=== PATIENT | male | born 1965 | race Caucasian/White ===

== ENCOUNTER 2017-04-14 08:14 | Observation (INO) | payer OTHER ==
[~2017-04-14] VITALS: Ht 177.8 cm; Wt 81.5 kg
[2017-04-14] MEDS ORDERED: PRAS1CAP PO (08:31)
[2017-04-14 09:01] LABS: BASO % 0.2 %; BASO ABS # 0.01 K/uL (0-0.2); COMPLETE YES; EOS % 3.6 %; HEMATOCRIT 44.1 % (42-52); LYMPH % 22.9 %; LYMPH ABS # 1.33 K/uL (1.2-3.4); MEAN CELL VOLUME 86.5 fL (80-100); MEAN CORPUSCULAR HEMOGLOBIN 28.8 pg (25-34); MEAN CORPUSCULAR HGB CONC 33.3 g/dl (32-36); MONO % 7.9 %; NEUT % 65.4 %; PLATELET COUNT 177 K/uL (130-400); WHITE BLOOD COUNT 5.81 K/uL (4.8-10.8)
--- NOTE | 2017-04-14 09:15 | DIAGNOSTIC IMAGING REPORT ---
CHEST ONE VIEW PORTABLE CLINICAL HISTORY: Atypical chest pain COMPARISON STUDY: 5-16 FINDINGS: The cardiac and mediastinal contours are normal. There is no evidence of focal pulmonary consolidation. There is no evidence of failure. No pleural effusions are visualized.[ IMPRESSION: No active disease in the chest. Electronically signed by: Herman Negron M.D. 04/14/2017 9:14 AM Dictated Date/Time: 04/14/2017 9:14 AM
[2017-04-14 09:22] LABS: BLOOD UREA NITROGEN 18 mg/dl (7-18); BUN/CREATININE RATIO 14.6 (10-20); CALCIUM 9.3 mg/dl (8.5-10.1); CARBON DIOXIDE 27 mmol/L (21-32); CHLORIDE 107 mmol/L (98-107); GLUCOSE 96 mg/dl (70-99); POTASSIUM 4.5 mmol/L (3.5-5.1); SODIUM 140 mmol/L (136-145)
[2017-04-14] MEDS ORDERED: ASPIRIN 81 MG CHEW PO STA (09:30)
[2017-04-14] MEDS ORDERED: SODIUM CHLORIDE 0.9% 1000ML 1,000 ML IV STA (10:46)
[2017-04-14] MEDS ORDERED: MAGNESIUM HYDROXIDE SUSP 30 ML UDC PO PRN (11:30)
[2017-04-14] MEDS ORDERED: ZOLPIDEM TARTRATE 5 MG TAB PO PRN (11:30)
[2017-04-14] MEDS ORDERED: ONDANSETRON INJ 2 MG/ML 2 ML VIAL IV PRN (11:30)
[2017-04-14] MEDS ORDERED: ALUMINUM/MAGNESIUM/SIMETH (MAALOX MAX) 30 ML UDC PO PRN (11:30)
[2017-04-14] MEDS ORDERED: ACETAMINOPHEN 325 MG TAB PO PRN (11:30)
--- NOTE | 2017-04-14 11:35 | History and Physical ---
History & Physical Date & Time of Service: Apr 14, 2017 at 11:02 Chief Complaint: Chest Pain Primary Care Physician: No Doctor, Assigned History of Present Illness Source: patient, spouse 52yo male with no significant PMH who presents with multiple CV symptoms since last . He states that about that time he developed "fluttering" of the heart. Symptoms are transient, lasting about 5-10 minutes. He feels skipped beats. He feels a little short of breath with the episodes and has mild chest tightness. Symptoms occur at rest and sometimes with activity. He took a dose of ativan (it was his 's) when he felt these symptoms a few days ago and this helped his symptoms. Episodes have occurred about 3-5 x's each day. No fevers or chills. Several times over the last few days, during the spells noted above, his would check his blood pressure and it would be 80s over 60s. When the pressures were low like this he felt like he could pass out. Last week they were traveling in [place] (for 's doctor appointment) and he felt like he was going to pass out. He feels dehydrated today. Past Medical/Surgical History PMH: 1. treated for hypothyroidism about 1 year ago - now off medications 2. heart murmur as a child 3. chronic sinusitis 4. chronic retinal problem, right eye, with resulting visual disturbance PSH: 1. tonsillectomy 2. heart cath as a child - reason? - was normal, however 3. 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 ) Multi-Drug Resistant Organisms History of MDRO: No Allergies Coded Allergies: Penicillins (Verified Allergy, Mild, WEAK IN LEGS, 04/14/17) Home Medications Scheduled Prasterone (Dhea) (Dhea), 12.5 MG PO DAILY Review of Systems Constitutional: + fatigue, No fever, No chills, No sweats, No weight loss Eyes: + worsening of vision (right eye retinal issue - chronic) ENT: No nasal symptoms, No sore throat Respiratory: + cough (typically AM) Cardiovascular: + chest pain (symptoms better standing), + palpitations, No orthopnea, No PND, No edema Abdomen: No pain, No nausea, No vomiting, No diarrhea, No constipation, No GI bleeding Musculoskeletal: No joint pain, No muscle pain, No swelling, No calf pain Genitourinary - Male: + urinary frequency, No dysuria Neurologic: + numbness/tingling (left arm -last night only) Psychiatric: No anxiety, No insomnia Endocrine: + fatigue Hematologic / Lymphatic: No abnormal bleeding/bruising, No swollen lymph nodes , No night sweats Integumentary: No rash Physical Exam Vital Signs Date Time Temp Pulse Resp B/P (MAP) Pulse Ox O2 Delivery O2 Flow Rate FiO2 04/14/17 10:28 46 16 112/97 97 Room Air 04/14/17 09:44 60 16 103/69 97 04/14/17 08:48 56 04/14/17 08:32 54 101/62 56 105/67 57 106/69 04/14/17 08:23 98 Room Air 04/14/17 08:17 37.7 54 16 106/67 98 Room Air General Appearance: WD/WN, no apparent distress, + pertinent finding (looks dehydrated; mildly anxious) Head: normocephalic, atraumatic Eyes: PERRL, EOMI ENT: hearing grossly normal, TMs normal, pharynx normal, + nasal congestion Neck: supple, no adenopathy, thyroid normal, no JVD Respiratory/Chest: chest non-tender, lungs clear, normal breath sounds, no respiratory distress, no accessory muscle use Cardiovascular: no gallop, no murmur, normal peripheral pulses, + bradycardia Abdomen/GI: normal bowel sounds, non tender, soft, no organomegaly Back: normal inspection Extremities/Musculoskelatal: normal inspection, no calf tenderness, normal capillary refill, no pedal edema, normal range of motion Neurologic/Psych: no motor/sensory deficits, alert, normal mood/affect, normal reflexes, oriented x 3 Skin: no rash Lymphatic: no adenopathy (cervical ) Diagnostics Laboratory Results Results Past 24 Hours Test 04/14/17 08:45 04/14/17 10:52 Range/Units White Blood Count 5.81 4.8-10.8 K/uL Red Blood Count 5.10 4.7-6.1 M/uL Hemoglobin 14.7 14.0-18.0 g/dL Hematocrit 44.1 42-52 % Mean Corpuscular Volume 86.5 80-100 fL Mean Corpuscular Hemoglobin 28.8 25-34 pg Mean Corpuscular Hemoglobin Concent 33.3 32-36 g/dl Platelet Count 177 130-400 K/uL Mean Platelet Volume 11.0 7.4-10.4 fL Neutrophils (%) (Auto) 65.4 % Lymphocytes (%) (Auto) 22.9 % Monocytes (%) (Auto) 7.9 % Eosinophils (%) (Auto) 3.6 % Basophils (%) (Auto) 0.2 % Neutrophils # (Auto) 3.80 1.4-6.5 K/uL Lymphocytes # (Auto) 1.33 1.2-3.4 K/uL Monocytes # (Auto) 0.46 0.11-0.59 K/uL Eosinophils # (Auto) 0.21 0-0.5 K/uL Basophils # (Auto) 0.01 0-0.2 K/uL RDW Standard Deviation 41.1 36.4-46.3 fL RDW Coefficient of Variation 12.8 11.5-14.5 % Immature Granulocyte % (Auto) 0.0 % Immature Granulocyte # (Auto) 0.00 0.00-0.02 K/uL D-Dimer < 190 0-500 ug/L FEU Sodium Level 140 136-145 mmol/L Potassium Level 4.5 3.5-5.1 mmol/L Chloride Level 107 98-107 mmol/L Carbon Dioxide Level 27 21-32 mmol/L Anion Gap 6.0 3-11 mmol/L Blood Urea Nitrogen 18 7-18 mg/dl Creatinine 1.20 0.60-1.40 mg/dl Est Creatinine Clear Calc Drug Dose 73.5 ml/min Estimated GFR () 79.5 Estimated GFR (Non- 68.6 BUN/Creatinine Ratio 14.6 10-20 Random Glucose 96 70-99 mg/dl Calcium Level 9.3 8.5-10.1 mg/dl Total Creatine Kinase 290 39-308 U/L Creatine Kinase MB 2.8 0.5-3.6 ng/ml Creatine Kinase MB Ratio 1.0 0-3.0 Troponin I < 0.015 0-0.045 ng/ml Diagnostic Radiology cxr - normal, infiltrates EKG EKG - sinus bradycardia, PAC noted, no ST changes; normal intervals, no LVH NS ST changes III, AVF minimal J point elevation I and AVL Impression Assessment and Plan 52yo male with history of hypothyroidism but no longer on replacement medication presenting with palpitations and chest tightness episodes lasting 10- 15 minutes several times a day for the past few days. He has felt weak and tired during these spells. His astutely checked his blood pressure over the weekend (and today) during the episodes and found him to be in the 80s systolic. He has had near- syncope as well. 1. chest tightness, palpitations - he has had sinus bradycardia with PACs on EKG and on telemetry while in the ER. Will place him on telemetry, check an echo, await his TSH, and perform serial cardiac enzymes. Depending on these results a decision can be made about further cardiac work-up (stress test, outpatient event monitor, etc). Although he recently traveled to [place] I think his risk of PE is low. 2. dehydration - the patient clinically appears dehydrated and his symptoms at home suggest that as well. Give a NS bolus now, then hydrate with NS at 150cc/hr. He has no obvious reason for the low BP and orthostasis although he has a low- grade fever in the ER today. In addition to the echo will check a random cortisol level. 3. low-grade fever - the [place] and spends a considerable time outdoors. Will check a lyme's screen. No pneumonia on cxr. Obtain blood cx's and follow. Check sed rate, crp. 4. FEN - NS hydration as above, regular diet, repeat bmp in am. 5. DVT proph - lovenox once daily. 6. chronic cough - suspect sinus/allergy related. Consider nasal steroid and antihistamine. He has a prior h/o chronic sinusitis. 7. sinus bradycardia - await TSH. This may be functional as he is quite healthy. Observe on telemetry for pauses, intermittent block, etc. 8. near-syncope - likely due to dehydration/orthostasis. Hydrate. Advanced Directives Existing Advance Directive: Yes Existing Living Will: Yes Existing Power of Databases Software Consultant: Yes Resuscitation Status FULL RESUSCITATION VTE Prophylaxis VTE Risk Assessment Done? Y/N: Yes Risk Level: Low Given or contraindicated: Enoxaparin (Lovenox)SQ Social Service Consult None Apply Note total time about 60 minutes patient to be placed on observation status Additional Copies To Jose Guadalupe Hensley M.D.
[2017-04-14 11:58] VITALS: O2SAT 98; Ht 177.8 cm; Wt 81.5 kg
[2017-04-14] MEDS ORDERED: IV FLUIDS COMPLETED PRN (13:15)
[2017-04-14 13:48] VITALS: BP 102/61; PULSE 48; TEMP 36.8; O2SAT 98
--- NOTE | 2017-04-14 14:45 | EMERGENCY ROOM VISIT NOTE ---
History Report prepared by Suki: Saulo Licea Under the Supervision of: Dr. Jose Wilson D.O. First contact with patient: 08:44 Chief Complaint: CHEST PAIN Stated Complaint: CHEST PAIN Nursing Triage Summary: Chest pain, center of chest. Pt states has been going on for approx a week, more frequent and getting worse as it goes. Took two baby aspirin this a.m. No radiation of the pain. Hx of heart murmur. Pt states "feels like fluttering and irregular" History of Present Illness The patient is a 52 year old male who presents to the Emergency Room with complaints of intermittent "fluttering" and "tightness" in his chest that began on of last week, 4 days ago. The patient states that his symptoms have been intermittent for the past four days, but are increasing in frequency and severity. The last episode occurred while en route to the hospital, just prior to arrival. He also complains of tingling in the left arm last night, pain in the right shoulder, and intermittent shortness of breath. The patient's notes that he has also complained of headaches over the past couple of days. The patient noted a history of low blood pressure, but denies any history of cardiac disease, diabetes, hypertension, or hyperlipidemia. He also denies any recent medication changes, change in vision, fevers, nausea, vomiting, diarrhea , pain with urination, and melena. 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 A total of 10 systems reviewed and were otherwise negative. Past Medical & Surgical Medical Problems: (1) Acquired hypothyroidism (2) Chest pain (3) Hypotension Hypotension Family History Patient denies any pertinent family histories. Social History Smoking Status: Never Smoker Alcohol Use: none Drug Use: none Marital Status: Housing Status: lives with family Occupation Status: employed Current/Historical Medications Scheduled Prasterone (Dhea) (Dhea), 12.5 MG PO DAILY Allergies Coded Allergies: Penicillins (Verified Allergy, Mild, WEAK IN LEGS, 04/14/17) Physical Exam Vital Signs Date Time Temp Pulse Resp B/P (MAP) Pulse Ox O2 Delivery O2 Flow Rate FiO2 8/7/17 11:31 118/81 04/14/17 11:29 57 17 04/14/17 11:24 48 13 96 04/14/17 11:19 48 14 97 04/14/17 11:14 49 14 96 04/14/17 11:09 50 17 99 04/14/17 11:04 47 24 97 04/14/17 11:00 104/66 04/14/17 10:59 48 22 97 04/14/17 10:56 102/67 04/14/17 10:54 47 17 97 04/14/17 10:44 46 20 96 04/14/17 10:39 43 9 97 04/14/17 10:34 50 15 97 04/14/17 10:29 48 18 96 04/14/17 10:28 46 16 112/97 97 Room Air 04/14/17 10:26 112/67 04/14/17 10:24 45 16 98 04/14/17 10:19 45 13 97 04/14/17 10:14 47 23 98 04/14/17 10:09 46 14 99 04/14/17 10:04 50 6 97 04/14/17 09:59 51 17 98 04/14/17 09:54 48 11 96 04/14/17 09:49 49 17 96 04/14/17 09:45 103/69 04/14/17 09:44 60 16 103/69 97 04/14/17 09:44 50 16 96 04/14/17 09:39 49 15 95 04/14/17 09:34 52 18 96 04/14/17 09:29 50 14 95 04/14/17 09:24 52 19 98 04/14/17 09:19 50 11 96 04/14/17 09:14 49 17 96 04/14/17 09:09 53 16 95 04/14/17 09:04 53 20 98 04/14/17 08:59 55 14 97 04/14/17 08:54 47 14 97 04/14/17 08:49 49 20 96 04/14/17 08:48 56 04/14/17 08:34 106/69 04/14/17 08:32 54 101/62 56 105/67 57 106/69 04/14/17 08:23 98 Room Air 04/14/17 08:17 37.7 54 16 106/67 98 Room Air Physical Exam GENERAL: Sitting up in bed, alert, well appearing, well nourished, no distress, non-toxic EYE EXAM: normal conjunctiva OROPHARYNX: no exudate, no erythema, lips, buccal mucosa, and tongue normal and mucous membranes are moist NECK: supple, no nuchal rigidity, no adenopathy, non-tender LUNGS: Clear to auscultation. Normal chest wall mechanics HEART: no murmurs, S1 normal and S2 normal ABDOMEN: abdomen soft, non-tender, normo-active bowel sounds, no masses, no rebound or guarding. BACK: Back is symmetrical on inspection and there is no deformity, no midline tenderness, no CVA tenderness. SKIN: no rashes and no bruising UPPER EXTREMITIES: upper extremities are grossly normal. Radial pulses are equal bilaterally. LOWER EXTREMITIES: No pitting edema. Calves are equal bilaterally NEURO EXAM: Normal sensorium, cranial nerves II-XII grossly intact, normal speech, no gross weakness of arms, no gross weakness of legs. Medical Decision & Procedures ER Provider Diagnostic Interpretation: Radiology results as stated below per my review and the radiologist's interpretation: CHEST ONE VIEW PORTABLE CLINICAL HISTORY: Atypical chest pain COMPARISON STUDY: 5-16 FINDINGS: The cardiac and mediastinal contours are normal. There is no evidence of focal pulmonary consolidation. There is no evidence of failure. No pleural effusions are visualized.[ IMPRESSION: No active disease in the chest. Electronically signed by: Herman Negron M.D. 04/14/2017 9:14 AM Dictated Date/Time: 04/14/2017 9:14 AM Laboratory Results 04/14/17 08:45 Red Blood Count 5.10, Mean Corpuscular Volume 86.5, Mean Corpuscular Hemoglobin 28.8, Mean Corpuscular Hemoglobin Concent 33.3, Mean Platelet Volume 11.0, Neutrophils (%) (Auto) 65.4, Lymphocytes (%) (Auto) 22.9, Monocytes (%) (Auto) 7.9, Eosinophils (%) (Auto) 3.6, Basophils (%) (Auto) 0.2, Neutrophils # (Auto) 3.80, Lymphocytes # (Auto) 1.33, Monocytes # (Auto) 0.46, Eosinophils # (Auto) 0.21, Basophils # (Auto) 0.01 04/14/17 08:45 Test 8/7/17 08:45 White Blood Count 5.81 K/uL (4.8-10.8) Red Blood Count 5.10 M/uL (4.7-6.1) Hemoglobin 14.7 g/dL (14.0-18.0) Hematocrit 44.1 % (42-52) Mean Corpuscular Volume 86.5 fL (80-100) Mean Corpuscular Hemoglobin 28.8 pg (25-34) Mean Corpuscular Hemoglobin Concent 33.3 g/dl (32-36) Platelet Count 177 K/uL (130-400) Mean Platelet Volume 11.0 fL (7.4-10.4) Neutrophils (%) (Auto) 65.4 % Lymphocytes (%) (Auto) 22.9 % Monocytes (%) (Auto) 7.9 % Eosinophils (%) (Auto) 3.6 % Basophils (%) (Auto) 0.2 % Neutrophils # (Auto) 3.80 K/uL (1.4-6.5) Lymphocytes # (Auto) 1.33 K/uL (1.2-3.4) Monocytes # (Auto) 0.46 K/uL (0.11-0.59) Eosinophils # (Auto) 0.21 K/uL (0-0.5) Basophils # (Auto) 0.01 K/uL (0-0.2) RDW Standard Deviation 41.1 fL (36.4-46.3) RDW Coefficient of Variation 12.8 % (11.5-14.5) Immature Granulocyte % (Auto) 0.0 % Immature Granulocyte # (Auto) 0.00 K/uL (0.00-0.02) D-Dimer < 190 ug/L FEU (0-500) Anion Gap 6.0 mmol/L (3-11) Est Creatinine Clear Calc Drug Dose 73.5 ml/min Estimated GFR () 79.5 Estimated GFR (Non- 68.6 BUN/Creatinine Ratio 14.6 (10-20) Calcium Level 9.3 mg/dl (8.5-10.1) Total Creatine Kinase 290 U/L (39-308) Creatine Kinase MB 2.8 ng/ml (0.5-3.6) Creatine Kinase MB Ratio 1.0 (0-3.0) Troponin I < 0.015 ng/ml (0-0.045) Thyroid Stimulating Hormone (TSH) 2.450 uIu/ml (0.300-4.500) Laboratory results per my review. Medications Administered Medications (Trade) Dose Ordered Sig/Trace Route Start Time Stop Time Status Last Admin Dose Admin Aspirin (Aspirin Chew) 324 mg NOW STAT PO 04/14/17 09:30 04/14/17 09:31 DC 04/14/17 09:43 324 MG Sodium Chloride 1,000 ml @ 999 mls/hr Q1H1M STAT IV 04/14/17 10:46 04/14/17 11:46 DC 04/14/17 10:46 999 MLS/HR ECG Indication: chest pain Rate (beats per minute): 52 Rhythm: sinus bradycardia Findings: no ectopy, other (Normal axis, single PAC present) ED Course ED COURSE: Vital signs were reviewed and showed bradycardic vitals The patients medical record was reviewed The above diagnostic studies were performed and reviewed. ED treatments and interventions as stated above. 0853: The patient was evaluated in room A2. A complete history and physical examination was performed. 0930: Ordered Aspirin 324 mg PO. 1010: I had a discussion with the patient at length at bedside at this time. He is agreeable to admission and a stay in the hospital. His chest pain is not present at this time. 1052: I discussed the case with Dr. Garner - Hospitalist at this time. He will evaluate the patient for further treatment. 1046: Ordered Sodium Chloride 1000 mL @ 999 mL/hr IV. 1050: Upon reevaluation, the patient is resting in bed, chest pain is resolved.I discussed my findings with the patient and he understands and agrees with the treatment plan. Based on the patients age, coexisting illnesses, exam and lab findings the decision to treat as an inpatient was made. The patient remained stable while under my care. The patient will be evaluated for further management. Medical Decision Differential diagnoses includes but is not limited to acute coronary syndrome, myocardial infarction, pericarditis, pulmonary embolus, aortic dissection, pneumonia, pneumothorax, musculoskeletal, shingles, esophageal. Patient is a 52-year-old male who presents the ER for intermittent rapid heartbeat associated with weakness and intermittent chest pain. He did have some left arm tingling as well. CBC along with BMP was unremarkable. Troponin was negative. EKG was unremarkable. Chest x-ray was normal. D-dimer was negative. Patient was fairly bradycardic in the ER with heart rate in the 40s. Do favor this likely cause of his weakness. Patient no chest pain while in the ER. He was given aspirin. He should family were updated at bedside and patient was admitted as a chest pain rule out with bradycardia. Medication Reconcilliation Current Medication List: was personally reviewed by me Blood Pressure Screening Patient is hypotensive Consults Time Called: 1044 Consulting Physician: Dr. Patsy IRVING Hospitalist Returned Call: [phone] I discussed the case with Dr. Patsy IRVING Hospitalist at this time. He will evaluate the patient for further treatment. Impression Primary Impression: Precordial chest pain Additional Impression: Bradycardia Scribe Attestation The scribe's documentation has been prepared under my direction and personally reviewed by me in its entirety. I confirm that the note above accurately reflects all work, treatment, procedures, and medical decision making performed by me. Departure Information Dispostion Being Evaluated By Hospitalist Referrals Malik Kohler MD (PCP) Patient Instructions My [facility] Problem Qualifiers
[2017-04-14] MEDS: SODIUM CHLORIDE 0.9% 1000ML 1,000 ML IV SCH ×2 (14:48→19:26)
[2017-04-14 14:55] LABS: PROTHROMBIN TIME (PATIENT) 10.3 SECONDS (9.0-12.0)
[2017-04-14 15:12] LABS: C-REACTIVE PROTEIN < 0.29 mg/dl (0-0.29); MAGNESIUM 2.4 mg/dl (1.8-2.4)
[2017-04-14 15:14] LABS: LYME DISEASE AB IGG NEG (NEG)
[2017-04-14 15:23] LABS: LYME DISEASE AB IGM NEG (NEG)
[2017-04-14 15:40] VITALS: BP 121/80; PULSE 52; TEMP 36.7; O2SAT 96
[2017-04-14 16:00] VITALS: O2SAT 96
[2017-04-14] MEDS ORDERED: ENOXAPARIN 40 MG/0.4 ML SYR SC SCH (16:00)
--- NOTE | 2017-04-14 17:30 | ECHOCARDIOGRAM REPORT ---
*NOTICE TO RECEIVING REPUBLICAN AGENCY This information is strictly Confidential and protected under [place] law. [place] law prohibits you from making any further disclosure of this information unless further disclosure is expressly permitted by the written consent of the person to whom it pertains or is authorized by law. A general authorization for the release of medical or other information is not sufficient for this purpose. Hospital accepts no responsibility if the information is made available to any other person, INCLUDING THE PATIENT. Interpretation Summary * Name: DARIEL APPLE Study Date: 04/14/2017 01:47 PM BP: 102/61 mmHg * Patient Location: [facility]\S\N281\S\2 HR: 50 * : 1965 (M/d/yyyy) Gender: Male Height: 70 in * Age: 52 yrs Ethnicity: [place] Weight: 180 lb * Ordering Physician: Micheal Garner * Referring Physician: Self, Referred * Performed By: Laura Patel RDCS * * Reason For Study: CHEST PAIN * BSA: 2.0 m2 * Normal biventriclar systolic function. * Normal chamber dimensions. * Trace aortic,mitral, and pulmonic regurgitation. * Mild tricuspid regurgitation. Procedure Details * A complete two-dimensional transthoracic echocardiogram was performed (2D, M-mode, Doppler and color flow Doppler). Left Ventricle * The left ventricle is normal in size. * There is normal left ventricular wall thickness. * Ejection Fraction = 60-65%. * The left ventricular wall motion is normal. Right Ventricle * The right ventricle is normal in size and function. * The right ventricular systolic function is normal as assessed by tricuspid annular plane systolic excursion (TAPSE) (normal >1.5 cm). Atria * The left atrial size is normal. * Right atrial size is normal. * The atrial septum is aneurysmal. * There is no Doppler evidence for an atrial septal defect. Mitral Valve * The mitral valve is normal. * There is no mitral valve stenosis. * There is trace mitral regurgitation. Tricuspid Valve * The tricuspid valve is normal. * There is no tricuspid stenosis. * There is mild tricuspid regurgitation. * Right ventricular systolic pressure is normal. Aortic Valve * The aortic valve is trileaflet. * The aortic valve opens well. * Aortic stenosis is absent. * Trace aortic regurgitation. Pulmonic Valve * The pulmonic valve is not well seen, but is grossly normal. * There is no pulmonic valvular stenosis. * Trace pulmonic valvular regurgitation. Great Vessels * The aortic root is normal size. Pericardium/Pleural * There is no pericardial effusion. MMode 2D Measurements and Calculations IVSd 0.96 cm IVSs 1.6 cm LVIDd 4.6 cm LVIDs 2.9 cm LVPWd 0.76 cm LVPWs 1.3 cm IVS/LVPW 1.3 FS 36.1 % EDV(Teich) 96.8 ml ESV(Teich) 33.2 ml EF(Teich) 65.8 % EDV(cubed) 96.7 ml ESV(cubed) 25.3 ml EF(cubed) 73.9 % % IVS thick 66.9 % % LVPW thick 68.3 % LV mass(C)d 128.7 grams LV mass(C)dI 64.5 grams/m\S\2 LV mass(C)s 142.5 grams LV mass(C)sI 71.4 grams/m\S\2 SV(Teich) 63.7 ml SI(Teich) 31.9 ml/m\S\2 SV(cubed) 71.4 ml SI(cubed) 35.8 ml/m\S\2 Ao root diam 3.1 cm Ao root area 7.4 cm\S\2 LA dimension 3.7 cm LA/Ao 1.2 LVAd ap4 38.7 cm\S\2 LVLd ap4 9.2 cm EDV(MOD-sp4) 131.5 ml EDV(sp4-el) 137.4 ml LVAs ap4 21.2 cm\S\2 LVLs ap4 7.6 cm ESV(MOD-sp4) 49.6 ml ESV(sp4-el) 50.2 ml EF(MOD-sp4) 62.3 % EF(sp4-el) 63.4 % LVAd ap2 37.1 cm\S\2 LVLd ap2 9.4 cm EDV(MOD-sp2) 120.8 ml EDV(sp2-el) 124.3 ml LVAs ap2 18.7 cm\S\2 LVLs ap2 6.7 cm ESV(MOD-sp2) 44.1 ml ESV(sp2-el) 43.9 ml EF(MOD-sp2) 63.4 % EF(sp2-el) 64.7 % LVLd %diff 1.6 % EDV(MOD-bp) 125.5 ml LVLs %diff -13.13 % ESV(MOD-bp) 49.4 ml EF(MOD-bp) 60.7 % SV(MOD-sp4) 82.0 ml SI(MOD-sp4) 41.1 ml/m\S\2 SV(MOD-sp2) 76.6 ml SI(MOD-sp2) 38.4 ml/m\S\2 SV(MOD-bp) 76.2 ml SI(MOD-bp) 38.2 ml/m\S\2 SV(sp4-el) 87.2 ml SI(sp4-el) 43.7 ml/m\S\2 SV(sp2-el) 80.4 ml SI(sp2-el) 40.3 ml/m\S\2 Doppler Measurements and Calculations MV E max patrica 56.0 cm/sec MV A max patrica 49.5 cm/sec MV E/A 1.1 MV dec time 0.29 sec Ao V2 max 129.4 cm/sec Ao max PG 6.7 mmHg Ao max PG (full) 3.5 mmHg LV V1 max PG 3.2 mmHg LV V1 max 89.8 cm/sec TR max patrica 215.0 cm/sec
[2017-04-14 18:40] LABS: URINE APPEARANCE CLEAR (CLEAR); URINE BILIRUBIN NEG (NEG); URINE COLOR YELLOW; URINE NITRITE NEG (NEG); URINE PH 7.5 (4.5-7.5); URINE SPECIFIC GRAVITY 1.015 (1.000-1.030); UROBILINOGEN NEG (NEG)
[2017-04-14 18:49] LABS: MANUAL MICROSCOPIC REQUIRED? NO; REVIEW REQ? NO
[2017-04-14 20:27] VITALS: BP 109/65; PULSE 54; TEMP 36.9; O2SAT 96
[2017-04-14] MEDS ORDERED: LORAZEPAM 0.5 MG TAB PO SCH (21:00)
[2017-04-14] MEDS ORDERED: LORAZEPAM 0.5 MG TAB ONE (21:09)
--- NOTE | 2017-04-14 21:52 | Progress Note ---
Progress Note Date of Service Apr 14, 2017. Progress Note 2144 I updated the patient on his echo results, troponins, sed rate/crp, etc. Tele thus far with sinus graham only. I explained that his random cortisol was low but that the level may be falsely low due to his DHEA supplement he takes. He reports he saw an "hormone specialist" somewhere in [place] who did a battery of serum hormone levels. Apparently he went on DHEA at that time when his levels returned low. I reviewed these records (found in his paper chart) and his cortisol levels at that time were normal. Could consider local endo referral after discharge. I am not sure if a cosyntropin stim test would be accurate in the setting of his DHEA. NPO after MN for possible stress test tomorrow. Micheal Garner MD
[2017-04-14 23:55] LABS: CKMB/CK RATIO 1.4 (0-3.0)
[2017-04-15 00:37] VITALS: BP 97/59; PULSE 49; TEMP 36.8; O2SAT 96
[2017-04-15] MEDS: SODIUM CHLORIDE 0.9% 1000ML 1,000 ML IV SCH ×2 (00:57→07:38)
[2017-04-15 04:20] VITALS: BP 114/66; PULSE 51; TEMP 36.5; O2SAT 96
[2017-04-15 07:02] LABS: CHOLESTEROL/HDL RATIO 4.5
[2017-04-15 07:37] VITALS: BP 118/72; PULSE 52; TEMP 37; O2SAT 96
[2017-04-15 11:46] VITALS: BP 146/75; PULSE 71; TEMP 37.1; O2SAT 99
--- NOTE | 2017-04-15 12:09 | Cardiology Consultation ---
Cardiology Consultation Date of Consultation: Apr 15, 2017. Requesting Physician: Dr. Carrasquillo Reason for Consultation: Chest discomfort, fluttering sensation Pt evaluation today including: conversation w/ patient, physical exam, lab review, review of studies, review of inpatient medication list History of Present Illness This is a 52-year-old male with a history of anxiety who presented with chest discomfort and a fluttering sensation in his chest. He has a history of this, in 2012 he presented with very similar symptoms and was evaluated in our emergency room. No etiology was identified and I believe no arrhythmia was identified. He now presents having nearly a week of an intermittent fluttering sensation in his chest as well as some tightness in his chest. This occurred around 04/10/2017 and has continued, although the episodes apparently were happening daily when they started and now are happening about 3 times a day. He reports symptoms of chest discomfort which he describes as being in his sternal area (no radiation) and feeling as though somebody is breaking something in his chest. The episodes can last about half an hour, they're not brought on by activity but they do not seem to interfere with activity either but he doesn't try to be active when he has them. He also notes that his heart rate is fluctuating, sometimes as low and sometimes it is fast and he feels weak in general for the last several weeks to a month. It doesn't sound as though he has presyncope or syncope, however he does note that his blood pressure has been very low at times, and he felt faint when his was getting blood drawn (but that was probably a vagal reaction on his part). He is not generally very active and has been less lately. He does not have orthopnea or PND. He does not take any cardiovascular medications. He tells me that he is disappointed that he has had all these tests and nothing has been found. Past Medical/Surgical History (1) Hypotension (2) Acquired hypothyroidism Social History Smoking Status: Never Smoker History of Alcohol Use: No Review of Systems Constitutional: No fever, No weight loss, No weakness Respiratory: No cough, No wheezing, No shortness of breath, No dyspnea on exertion Cardiac: + see HPI, + chest pain, + palpitations, No orthopnea, No PND, No edema Abdomen: No pain, No nausea, No vomiting, No diarrhea, No GI bleeding Male : No urinary frequency, No nocturia more than once/night, No slowing stream, No sexual dysfunction Neurologic: No paralysis, No weakness, No numbness/tingling, No balance problems Heme: No abnormal bleeding/bruising, No clotting problems Endo: No fatigue Skin: No problem reported All Other Systems: Reviewed and Negative Allergies Coded Allergies: Penicillins (Verified Allergy, Mild, WEAK IN LEGS, 04/14/17) Medications Current Inpatient Medications Medications (Trade) Dose Ordered Sig/Trace Route Start Time Stop Time Status Last Admin Dose Admin Enoxaparin Sodium (Lovenox Inj) 40 mg DAILY@1600 SC 04/14/17 16:00 05/14/17 15:59 Sodium Chloride 1,000 ml @ 150 mls/hr Q6H40M IV 04/14/17 11:30 05/14/17 11:29 04/15/17 07:38 150 MLS/HR Acetaminophen (Tylenol Tab) 650 mg Q4H PRN PO 04/14/17 11:30 05/14/17 11:29 Al Hydrox/Mg Hydrox/Simethicone (Maalox Max Susp) 15 ml Q4H PRN PO 04/14/17 11:30 05/14/17 11:29 Magnesium Hydroxide (Milk Of Magnesia Susp) 30 ml Q12H PRN PO 04/14/17 11:30 05/14/17 11:29 Zolpidem Tartrate (Ambien Tab) 5 mg HSZ PRN PO 04/14/17 11:30 05/14/17 11:29 Ondansetron HCl (Zofran Inj) 4 mg Q6H PRN IV 04/14/17 11:30 05/14/17 11:29 Miscellaneous (Iv Fluids Completed) 1 ea PRN PRN N/A 04/14/17 13:15 04/14/18 13:14 Lorazepam (Ativan Tab) 0.5 mg HS PO 04/14/17 21:00 05/14/17 20:59 Physical Exam Vital Signs Past 12 Hours Date Time Temp Pulse Resp B/P (MAP) Pulse Ox O2 Delivery O2 Flow Rate FiO2 04/15/17 11:46 37.1 71 16 146/75 (98) 99 04/15/17 08:00 Room Air 04/15/17 07:37 37.0 52 16 118/72 (87) 96 04/15/17 04:20 36.5 51 18 114/66 (82) 96 Room Air 04/15/17 04:00 Room Air 04/15/17 00:37 36.8 49 20 97/59 (72) 96 Room Air 04/15/17 00:00 Room Air Constitutional: General Apperance: heathly-appearing Level of Distress: NAD Psychiatric: Mental Status: active & alert Head: normocephalic Eyes: EOM: EOMI ENMT: normal ENT inspection, hearing grossly normal Neck: supple, no masses Lungs: Respiratory effort: no dyspnea, good air movement Auscultation: breath sounds normal, no wheezing Cardiovascular: Heart Auscultation: RRR, no murmurs, no rubs, no gallops Peripheral Pulses: Bruits: none appreciated Abdomen: Bowel Sounds: normal Inspection & Palpation: soft, no tenderness, guarding & rebound, no masses Musculoskeletal: normal strength (5/5 throughout) Extremities: no edema Neurologic: Cranial Nerves: grossly intact Sensation: grossly intact Data Laboratory Results: Last 24 Hours Test 04/14/17 15:56 04/14/17 17:02 04/14/17 23:05 04/15/17 05:28 Total Creatine Kinase 223 U/L 179 U/L Creatine Kinase MB 2.3 ng/ml 2.5 ng/ml Creatine Kinase MB Ratio 1.0 1.4 Troponin I < 0.015 ng/ml < 0.015 ng/ml Random Cortisol 3.40 mcg/dl Urine Color YELLOW Urine Appearance CLEAR Urine pH 7.5 Urine Specific Outlook 1.015 Urine Protein NEG Urine Glucose (UA) NEG Urine Ketones NEG Urine Occult Blood NEG Urine Nitrite NEG Urine Bilirubin NEG Urine Urobilinogen NEG Urine Leukocyte Esterase NEG Triglycerides Level 105 mg/dl Cholesterol Level 165 mg/dl HDL Cholesterol 37 mg/dl LDL Cholesterol, Calculated 107 mg/dl VLDL Cholesterol, Calculated 21 mg/dl Cholesterol/HDL Ratio 4.5 Imaging: Echocardiogram: Normal left ventricular function. No significant abnormality. EKG: Sinus rhythm, normal electrocardiogram. Telemetry reviewed: Sinus rhythm, sinus bradycardia at times with a heart rate in the 40s. At other times he has sinus tachycardia, no significant abnormal rhythm observed. Assessment & Plan #1. Chest discomfort: His symptoms are very atypical for myocardial ischemia, his electrocardiogram does not show any ischemic changes and troponin measurements 3 are negative. He does not have exertional symptoms, the episodes last longer than angina typically does and the character is not suggestive of angina. It would not be unreasonable to perform a treadmill stress test, I had recommended a treadmill so that we could see whether he has appropriate heart rate response and appropriate blood pressure response to exercise however he feels that he is too weak to go on treadmill and he does not want to do that. He thought a pharmacologic stress test might be possible, although that would not allow us to evaluate his heart rate or blood pressure. His symptoms are atypical enough that don't know if a pharmacologic echo is worthwhile. If I didn't think it will give us the answer he told me he would prefer not to do it although if we insisted he was willing. I have not arranged it at the moment. #2. Fluttering sensation: The cause of this is not at all clear, he does have a lot of heart rate variability and I'm not sure why, he has heart rates in the 40s and periods of sinus tachycardia with rapid transition. This may be in part anxiety, perhaps he feels the heart rate change although I haven't seen a good correlation on telemetry and his symptoms last for quite a while whereas his arrhythmia seems to be of short duration. I haven't seen any particularly abnormal rhythms, I would be reluctant to treat the tachycardia with medications as he may get quite bradycardic and I'm not convinced he would feel a lot better. I would be reluctant to put in a pacemaker as well, I don't think his bradycardia warrants it. I did try to reassure him that we did not see any abnormal rhythms. #3. Labile blood pressure: He does seem to have an overall low blood pressure with a great deal of lability, at times sounds as though he may have symptomatic hypotension but that may be at times of a vagal response. We could consider tilt testing by don't think that is likely to help us either. I don't have any explanation for why he would have a labile blood pressure, it does not seem to be orthostatic (orthostatic blood pressures were done on 04/14/2017 and were normal) and his cortisol level is normal. He does not have symptoms of severe hypo-tension fortunately (such as presyncope or syncope).
--- NOTE | 2017-04-15 13:23 | Discharge Instructions ---
Discharge Instructions Date of Service Apr 15, 2017. Admission Reason for Admission: Chest Pain Discharge Discharge Diagnosis / Problem: Chest pain, flutter Discharge Goals Goal(s): Decrease discomfort, Improve function Activity Recommendations Activity Limitations: resume your previous activity Lifting Limitations: gradually increase as tolerated Exercise/Sports Limitations: gradually increase as tolerated May Resume Sexual Activity: when tolerated Shower/Bathe: no limitations Driving or Machine Use: no limitations . Instructions / Follow-Up Instructions / Follow-Up You were admitted to [facility] with chest pain and flutter sensation and diagnosed with the same. During your stay here you were treated with supportive care. - Cardiology was consulted and did not feel these symptoms were consistent with cardiac etiology because your cardiac biomarkers were trended x 3 and were negative. A 12 lead EKG was normal. A stress test was not performed as you were unable to participate in an exercise stress test. A chemical stress test was not completed since it would not have provided more information including heart rate, blood pressure and exercise tolerance like an exercise stress test would have. - Your symptoms resolved. - Please follow up with cardiology at [facility] as per your request, within the next 1-2 weeks. Please contact them directly. Report directly to the Emergency Department if you experience any acute onset of chest pain, shortness of breath, lightheadedness, dizziness, or have other concerns regarding your health. Follow up: Follow up with your Primary Care Provider within 1 week. Current Hospital Diet Patient's current hospital diet: Gluten Free Diet Discharge Diet Recommended Diet: Gluten Free Diet Pending Studies Studies pending at discharge: no Laboratory Results Lipid Panel Test 04/15/17 05:28 Range/Units Triglycerides Level 105 0-150 mg/dl Cholesterol Level 165 0-200 mg/dl HDL Cholesterol 37 mg/dl Cholesterol/HDL Ratio 4.5 LDL Cholesterol, Calculated 107 mg/dl Medical Emergencies . Who to Call and When: Medical Emergencies: If at any time you feel your situation is an emergency, please call 911 immediately. . Non-Emergent Contact Non-Emergency issues call your: Primary Care Provider Call Non-Emergent contact if: you have a fever, temperature is above 100.5, your pain is not controlled, your pain is worsening, your pain is unusual for you, your pain is concerning you, you have any medication questions . Past History Medical & Surgical History: (1) Chest pain (2) Bradycardia (3) Hypotension (4) Acquired hypothyroidism (5) Rheumatoid arthritis . "Provider Documentation" section prepared by Bianca Leary. . VTE Core Measure Inpt VTE Proph given/why not?: Enoxaparin (Lovenox)KEITH, T.E.D. Joseings
[2017-04-15 13:26] VITALS: BP 146/75; PULSE 71; TEMP 37.1; O2SAT 99
--- NOTE | 2017-04-15 13:28 | Discharge Summary ---
Discharge Summary Date of Service Apr 15, 2017. (Tiffanie Leary PA-C) Discharge Summary Admission Date: Apr 14, 2017 at 11:33 Discharge Date: Apr 15, 2017 Discharge Disposition: Home Principal Diagnosis: Chest pain with flutter Problems/Secondary Diagnoses: (1) Hypotension Status: Chronic Procedures: CHEST ONE VIEW PORTABLE CLINICAL HISTORY: Atypical chest pain COMPARISON STUDY: 5-16 FINDINGS: The cardiac and mediastinal contours are normal. There is no evidence of focal pulmonary consolidation. There is no evidence of failure. No pleural effusions are visualized.[ IMPRESSION: No active disease in the chest. Electronically signed by: Herman Negron M.D. 04/14/2017 9:14 AM Dictated Date/Time: 04/14/2017 9:14 AM The status of this report is Signed. Consultations: Cardiology (Tiffanie Leary PA-C) Medication Reconciliation Continued Medications: Prasterone (Dhea) (Dhea) 25 Mg Cap 12.5 MG PO DAILY Discharge Exam The patient was seen and examined this morning. Pt reports having flutter and chest pain which was substernal this morning at approximately 8:45. He describes this as "peanut brittle cracking in my chest". He denies associated lightheadedness or dizziness. He denies shortness of breath at rest or on exertion. He reports this resolved on its own, and has not recurred on my recheck of the patient. Review of Systems: Constitutional: No fever, No chills, No sweats Eyes: No eye pain, No diplopia ENT: No sore throat, No trouble swallowing Respiratory: No cough, No shortness of breath, No dyspnea on exertion, No dyspnea at rest Cardiovascular: No chest pain, No orthopnea, No edema, No palpitations Abdomen: No pain, No nausea Musculoskeletal: No joint pain, No swelling Genitourinary - Male: + problem reported (weakened stream, chronic), No hematuria, No dysuria, No urinary frequency Neurologic: No weakness, No numbness/tingling, No vertigo Endocrine: No fatigue Integumentary: No rash, No itch Physical Exam: General Appearance: WD/WN, no apparent distress Eyes: PERRL, EOMI ENT: hearing grossly normal, pharynx normal Neck: supple, no JVD Respiratory/Chest: lungs clear, no respiratory distress, no accessory muscle use, + pertinent finding (focal tenderness over the 4th costochondral joint bilaterally ) Cardiovascular: regular rate, rhythm, no JVD, no murmur Abdomen / GI: normal bowel sounds, non tender, soft Extremities: no calf tenderness, no pedal edema Neurologic/Psychiatric: alert, normal mood/affect, oriented x 3 Skin: normal color, warm/dry (Tiffanie Leary, NAVEEN) Hospital Course H&P by Dr. Garner Source: patient, spouse 52yo male with no significant PMH who presents with multiple CV symptoms since last . He states that about that time he developed "fluttering" of the heart. Symptoms are transient, lasting about 5-10 minutes. He feels skipped beats. He feels a little short of breath with the episodes and has mild chest tightness. Symptoms occur at rest and sometimes with activity. He took a dose of ativan (it was his 's) when he felt these symptoms a few days ago and this helped his symptoms. Episodes have occurred about 3-5 x's each day. No fevers or chills. Several times over the last few days, during the spells noted above, his would check his blood pressure and it would be 80s over 60s. When the pressures were low like this he felt like he could pass out. Last week they were traveling in [place] (for 's doctor appointment) and he felt like he was going to pass out. He feels dehydrated today. Physical Exam Vital Signs Date Time Temp Pulse Resp B/P (MAP) Pulse Ox O2 Delivery O2 Flow Rate FiO2 04/14/17 10:28 46 16 112/97 97 Room Air 04/14/17 09:44 60 16 103/69 97 04/14/17 08:48 56 04/14/17 08:32 54 101/62 56 105/67 57 106/69 04/14/17 08:23 98 Room Air 04/14/17 08:17 37.7 54 16 106/67 98 Room Air General Appearance: WD/WN, no apparent distress, + pertinent finding (looks dehydrated; mildly anxious) Head: normocephalic, atraumatic Eyes: PERRL, EOMI ENT: hearing grossly normal, TMs normal, pharynx normal, + nasal congestion Neck: supple, no adenopathy, thyroid normal, no JVD Respiratory/Chest: chest non-tender, lungs clear, normal breath sounds, no respiratory distress, no accessory muscle use Cardiovascular: no gallop, no murmur, normal peripheral pulses, + bradycardia Abdomen/GI: normal bowel sounds, non tender, soft, no organomegaly Back: normal inspection Extremities/Musculoskelatal: normal inspection, no calf tenderness, normal capillary refill, no pedal edema, normal range of motion Neurologic/Psych: no motor/sensory deficits, alert, normal mood/affect, normal reflexes, oriented x 3 Skin: no rash Lymphatic: no adenopathy (cervical ) Hospital Course: Chest tightness, palpitations - he has had sinus bradycardia with PACs on EKG and on telemetry while in the ER. - Cardiac biomarkers were negative x 3. - Echocardiogram was checked and negative - TSH was normal. - Cardiology was consulted however felt that the patient would benefit more from an exercise stress test, however the patient felt he would not be able to perform this. A dobutamine test was initially ordered, however because the patients symptoms seemed to be mroe related to blood pressure and heart rate, it was felt a stress exercise test would offer more insight. The patients symptoms resolved after 8am on 04/15, and he was not interested in staying in the hospital, and would have left AMA. The patient has arranged for outpatient cardiology follow up with [facility]. He was instructed to return to the ED if he developed any kind of chest pain, shortness of breath, lightheadedness or dizziness. He verbalized understanding of this, along with his who was present. Dehydration - the patient clinically appears dehydrated and his symptoms at home suggest that as well. - Give a NS bolus now, then hydrate with NS at 150cc/hr. - resolved - He had no obvious reason for the low BP and orthostatics were negative. - Random cortisol was normal Low-grade fever - [place] and spends a considerable time outdoors. - Lymes titre was checked and negative - No pneumonia on cxr. - Obtain blood cx's- follow by PCP. - Pt leukocytosis resolved, sed rate and crp were negative. Chronic cough - suspect sinus/allergy related. Consider nasal steroid and antihistamine. He has a prior h/o chronic sinusitis. Sinus bradycardia - TSH was obtained and is normal. Pt may benefit from a holter monitor placement. Pt has arranged for [facility] cardiology follow up within the next 1-2 weeks. His follows with [facility] cardiology as well. - Observe on telemetry for pauses, intermittent block, etc. - none of which happened during admission. DVT proph - lovenox sq Disposition: discharge home today. Total Time Spent: Greater than 30 minutes This includes examination of the patient, discharge planning, medication reconciliation, and communication with other providers. (Tiffanie Leary PA-C) I agree with PA assessment and plan and have seen and examined the pt myself Pt states chest pain resolved Trops neg EKG unremarkable Pt not wanting to have stress test here as inpatient Discharge home Pt states will f/u with [facility] presby (Hector Carrasquillo, D.O.) Discharge Instructions Please refer to the electronic Patient Visit Report (Discharge Instructions) for additional information. (Tiffanie Leary PA-C) Follow-Up Follow up with your Primary Care Provider within 1 week. Follow up with cardiology within 1-2 weeks at [facility] per patient request. (Tiffanie Leary PA-C)
--- NOTE | 2017-04-15 14:06 | ECHOCARDIOGRAM REPORT ---
*NOTICE TO RECEIVING [employer] This information is strictly Confidential and protected under [place] law. [place] law prohibits you from making any further disclosure of this information unless further disclosure is expressly permitted by the written consent of the person to whom it pertains or is authorized by law. A general authorization for the release of medical or other information is not sufficient for this purpose. Hospital accepts no responsibility if the information is made available to any other person, INCLUDING THE PATIENT. Interpretation Summary * Name: DARIEL APPLE Study Date: 04/14/2017 01:47 PM BP: 102/61 mmHg * Patient Location: [facility]\S\N281\S\2 HR: 50 * : 1965 (M/d/yyyy) Gender: Male Height: 70 in * Age: 52 yrs Ethnicity: [place] Weight: 180 lb * Ordering Physician: Micheal Garner * Referring Physician: Self, Referred * Performed By: Laura Patel RDCS * * Reason For Study: CHEST PAIN * BSA: 2.0 m2 * Normal biventriclar systolic function. * Normal chamber dimensions. * Trace aortic,mitral, and pulmonic regurgitation. * Mild tricuspid regurgitation. * Scant left to right flow across a very small perimembranous VSD. Procedure Details * A complete two-dimensional transthoracic echocardiogram was performed (2D, M-mode, Doppler and color flow Doppler). Left Ventricle * The left ventricle is normal in size. * Very scant left to right flow across a very small perimembranous VSD. * There is normal left ventricular wall thickness. * Ejection Fraction = 60-65%. * The left ventricular wall motion is normal. Right Ventricle * The right ventricle is normal in size and function. * The right ventricular systolic function is normal as assessed by tricuspid annular plane systolic excursion (TAPSE) (normal >1.5 cm). Atria * The left atrial size is normal. * Right atrial size is normal. * The atrial septum is aneurysmal. * There is no Doppler evidence for an atrial septal defect. Mitral Valve * The mitral valve is normal. * There is no mitral valve stenosis. * There is trace mitral regurgitation. Tricuspid Valve * The tricuspid valve is normal. * There is no tricuspid stenosis. * There is mild tricuspid regurgitation. * Right ventricular systolic pressure is normal. Aortic Valve * The aortic valve is trileaflet. * The aortic valve opens well. * Aortic stenosis is absent. * Trace aortic regurgitation. Pulmonic Valve * The pulmonic valve is not well seen, but is grossly normal. * There is no pulmonic valvular stenosis. * Trace pulmonic valvular regurgitation. Great Vessels * The aortic root is normal size. Pericardium/Pleural * There is no pericardial effusion. MMode 2D Measurements and Calculations IVSd 0.96 cm IVSs 1.6 cm LVIDd 4.6 cm LVIDs 2.9 cm LVPWd 0.76 cm LVPWs 1.3 cm IVS/LVPW 1.3 FS 36.1 % EDV(Teich) 96.8 ml ESV(Teich) 33.2 ml EF(Teich) 65.8 % EDV(cubed) 96.7 ml ESV(cubed) 25.3 ml EF(cubed) 73.9 % % IVS thick 66.9 % % LVPW thick 68.3 % LV mass(C)d 128.7 grams LV mass(C)dI 64.5 grams/m\S\2 LV mass(C)s 142.5 grams LV mass(C)sI 71.4 grams/m\S\2 SV(Teich) 63.7 ml SI(Teich) 31.9 ml/m\S\2 SV(cubed) 71.4 ml SI(cubed) 35.8 ml/m\S\2 Ao root diam 3.1 cm Ao root area 7.4 cm\S\2 LA dimension 3.7 cm LA/Ao 1.2 LVAd ap4 38.7 cm\S\2 LVLd ap4 9.2 cm EDV(MOD-sp4) 131.5 ml EDV(sp4-el) 137.4 ml LVAs ap4 21.2 cm\S\2 LVLs ap4 7.6 cm ESV(MOD-sp4) 49.6 ml ESV(sp4-el) 50.2 ml EF(MOD-sp4) 62.3 % EF(sp4-el) 63.4 % LVAd ap2 37.1 cm\S\2 LVLd ap2 9.4 cm EDV(MOD-sp2) 120.8 ml EDV(sp2-el) 124.3 ml LVAs ap2 18.7 cm\S\2 LVLs ap2 6.7 cm ESV(MOD-sp2) 44.1 ml ESV(sp2-el) 43.9 ml EF(MOD-sp2) 63.4 % EF(sp2-el) 64.7 % LVLd %diff 1.6 % EDV(MOD-bp) 125.5 ml LVLs %diff -13.13 % ESV(MOD-bp) 49.4 ml EF(MOD-bp) 60.7 % SV(MOD-sp4) 82.0 ml SI(MOD-sp4) 41.1 ml/m\S\2 SV(MOD-sp2) 76.6 ml SI(MOD-sp2) 38.4 ml/m\S\2 SV(MOD-bp) 76.2 ml SI(MOD-bp) 38.2 ml/m\S\2 SV(sp4-el) 87.2 ml SI(sp4-el) 43.7 ml/m\S\2 SV(sp2-el) 80.4 ml SI(sp2-el) 40.3 ml/m\S\2 Doppler Measurements and Calculations MV E max patrica 56.0 cm/sec MV A max patrica 49.5 cm/sec MV E/A 1.1 MV dec time 0.29 sec Ao V2 max 129.4 cm/sec Ao max PG 6.7 mmHg Ao max PG (full) 3.5 mmHg LV V1 max PG 3.2 mmHg LV V1 max 89.8 cm/sec TR max patrica 215.0 cm/sec
== END 2017-04-15 13:40 | disposition home or self-care (01) ==
LOC: C.EDB 08:15 → C.MED 11:33 → CANRESERV 12:12 → ENRESERV 12:12
PROVIDERS: ADMIT Internal Medicine; ATTEND Internal Medicine
DX: R07.89 Other chest pain (principal); R00.2 Palpitations; R00.1 Bradycardia, unspecified; E03.9 Hypothyroidism, unspecified; I95.9 Hypotension, unspecified; E86.0 Dehydration; R55 Syncope and collapse